=== PATIENT | male | born 1995 | race Caucasian/White ===

== ENCOUNTER 2018-05-01 21:24 | Emergency (ER) | payer OTHER ==
[~2018-05-01] VITALS: Ht 167.6 cm; Wt 65.0 kg
[2018-05-01 21:32] VITALS: BP 149/95; TEMP 98
[2018-05-02 00:29] VITALS: PULSE 65
== END 2018-05-02 00:29 | disposition home or self-care (01) ==
LOC: COL.ER 21:24
DX: J06.9 Acute upper respiratory infection, unspecified (principal); H61.23 Impacted cerumen, bilateral; F17.210 Nicotine dependence, cigarettes, uncomplicated